=== PATIENT | female | born 1990 | race African-American/Black ===

== ENCOUNTER 2017-05-31 11:21 | Observation (INO) | payer MEDICAID ==
[~2017-05-31] VITALS: Ht 177.8 cm; Wt 148.8 kg
[2017-05-31] MEDS ORDERED: PNV1TABL76 PO (12:10)
[2017-05-31] MEDS ORDERED: ASPI-1159 PO (12:12)
[2017-05-31] MEDS ORDERED: OCD PO (12:13)
[2017-05-31] MEDS ORDERED: IRON1CAP21 PO (12:14)
[2017-05-31 12:47] LABS: CLARITY URINE CLEAR (CLEAR); COLOR URINE YELLOW (YELLOW); GLUCOSE URINE NEGATIVE (NEGATIVE); KETONES URINE NEGATIVE (NEGATIVE); LEUKOCYTE ESTERASE URINE 2+ (NEGATIVE); NITRITE URINE NEGATIVE (NEGATIVE); OCCULT BLOOD URINE NEGATIVE (NEGATIVE); PH URINE 7.5 (4.5-8.0); PROTEIN URINE NEGATIVE (NEGATIVE); SPECIFIC GRAVITY URINE 1.006 (1.005-1.030); UROBILINOGEN URINE 0.2 E.U./dL (0.2-1.0)
== END 2017-05-31 13:45 | disposition home or self-care (01) ==
LOC: L&D 11:21
PROVIDERS: ADMIT Obstetrics & Gynecology; ATTEND Obstetrics & Gynecology
DX: O26.893 Other specified pregnancy related conditions, third trimester (principal); R10.2 Pelvic and perineal pain; O21.9 Vomiting of pregnancy, unspecified; Z3A.33 33 weeks gestation of pregnancy
CPT/HCPCS: 81001; 99281; G0378

== ENCOUNTER 2017-06-19 15:24 | Observation (INO) | payer MEDICAID ==
[~2017-06-19] VITALS: Ht 177.8 cm; Wt 147.4 kg
[~2017-06-19 15:24] MED LIST: ASPI-1159 PO; IRON1CAP21 PO; OCD PO; PNV1TABL76 PO
[2017-06-19 16:25] LABS: CLARITY URINE CLOUDY (CLEAR); COLOR URINE YELLOW (YELLOW); GLUCOSE URINE NEGATIVE (NEGATIVE); KETONES URINE NEGATIVE (NEGATIVE); LEUKOCYTE ESTERASE URINE 3+ (NEGATIVE); NITRITE URINE NEGATIVE (NEGATIVE); OCCULT BLOOD URINE NEGATIVE (NEGATIVE); PH URINE 6.5 (4.5-8.0); PROTEIN URINE NEGATIVE (NEGATIVE); SPECIFIC GRAVITY URINE 1.016 (1.005-1.030)
[2017-06-19 16:29] LABS: BASOPHILS % 0.2 % (0.0-2.0); EOSINOPHILS % 2.6 % (0.0-5.0); HEMATOCRIT. 30.4 % (36.0-48.0); HEMOGLOBIN. 9.7 g/dL (12.0-16.0); LYMPHOCYTES % 18.6 % (20.0-50.0); MEAN CORPUSCULAR HEMOGLOBIN 23.5 pg (28.0-32.0); MEAN CORPUSCULAR VOLUME 73.8 fL (81.0-99.0); MEAN PLATELET VOLUME 9.2 fl (7.4-10.4); MONOCYTES % 8.7 % (2.0-8.0); NEUTROPHILS % 69.9 % (40.0-76.0); PLATELET 226 x1000/uL (130-400); RED BLOOD CELL COUNT 4.12 mill/uL (4.2-5.4); RED CELL DISTRIBUTION WIDTH 15.1 % (11.6-14.6)
[2017-06-19 16:38] LABS: CARBON DIOXIDE 22 mEq/L (21-32); CHLORIDE 105 mEq/L (98-107)
[2017-06-19 16:41] LABS: *AMPHETAMINES SCREEN URINE NEGATIVE (NEGATIVE); *BARBITURATES SCREEN URINE NEGATIVE (NEGATIVE); *BENZODIAZEPINES SCREEN URINE NEGATIVE (NEGATIVE); *COCAINE SCREEN URINE NEGATIVE (NEGATIVE); CANNABINOID URINE SCREEN NEGATIVE (NEGATIVE); METHADONE URINE SCREEN NEGATIVE (NEGATIVE); OPIATES URINE SCREEN NEGATIVE (NEGATIVE); PHENCYCLIDINE URINE SCREEN NEGATIVE (NEGATIVE)
[2017-06-19 16:41] LABS: D-DIMER 1.4 mg/L FEU (<0.50); PARTIAL THROMBOPLASTIN TIME 27.8 sec (23.4-31.0); PROTHROMBIN TIME 10.9 sec (9.4-11.6)
[2017-06-19] MEDS ORDERED: POTASSIUM CHLORIDE 20MEQ TABLET SR PO NR (18:15)
== END 2017-06-19 18:30 | disposition home or self-care (01) ==
LOC: L&D 15:24
PROVIDERS: ADMIT Obstetrics & Gynecology; ATTEND Obstetrics & Gynecology
DX: O26.893 Other specified pregnancy related conditions, third trimester (principal); R03.0 Elevated blood-pressure reading, without diagnosis of hypertension; Z3A.36 36 weeks gestation of pregnancy
CPT/HCPCS: 36415; 80053; 80305; 81001; 84550; 85025; 85379; 85384; 85610; 85730; 99281; G0378

== ENCOUNTER 2017-07-07 14:23 | Observation (INO) | payer MEDICAID ==
[~2017-07-07] VITALS: Ht 177.8 cm; Wt 154.7 kg
[2017-07-07 16:30] LABS: BASOPHILS % 0.2 % (0.0-2.0); CLARITY URINE CLEAR (CLEAR); COLOR URINE DARK YELLOW (YELLOW); EOSINOPHILS % 2.4 % (0.0-5.0); GLUCOSE URINE NEGATIVE (NEGATIVE); HEMATOCRIT. 29.4 % (36.0-48.0); HEMOGLOBIN. 9.4 g/dL (12.0-16.0); KETONES URINE NEGATIVE (NEGATIVE); LEUKOCYTE ESTERASE URINE 2+ (NEGATIVE); MEAN CORPUSCULAR HEMOGLOBIN 23.5 pg (28.0-32.0); MEAN CORPUSCULAR VOLUME 73.5 fL (81.0-99.0); MEAN PLATELET VOLUME 8.8 fl (7.4-10.4); MONOCYTES % 10.2 % (2.0-8.0); NEUTROPHILS % 70.2 % (40.0-76.0); NITRITE URINE NEGATIVE (NEGATIVE); OCCULT BLOOD URINE NEGATIVE (NEGATIVE); PLATELET 226 x1000/uL (130-400); PROTEIN URINE NEGATIVE (NEGATIVE); RED CELL DISTRIBUTION WIDTH 15.6 % (11.6-14.6); SPECIFIC GRAVITY URINE 1.023 (1.005-1.030)
[2017-07-07 16:36] LABS: CARBON DIOXIDE 25 mEq/L (21-32); CHLORIDE 105 mEq/L (98-107)
[2017-07-07 16:39] LABS: D-DIMER 1.79 mg/L FEU (<0.50); INR 1.1; PARTIAL THROMBOPLASTIN TIME 27.5 sec (23.4-31.0); PROTHROMBIN TIME 11.3 sec (9.4-11.6)
== END 2017-07-07 17:50 | disposition home or self-care (01) ==
LOC: EDSTATUS 14:36 → L&D 14:46
PROVIDERS: ADMIT Obstetrics & Gynecology; ATTEND Obstetrics & Gynecology
DX: O13.3 Gestational [pregnancy-induced] hypertension without significant proteinuria, third trimester (principal); O99.013 Anemia complicating pregnancy, third trimester; D57.40 Sickle-cell thalassemia without crisis; O99.513 Diseases of the respiratory system complicating pregnancy, third trimester; J45.909 Unspecified asthma, uncomplicated; O26.03 Excessive weight gain in pregnancy, third trimester; R89.6 Abnormal cytological findings in specimens from other organs, systems and tissues; Z3A.38 38 weeks gestation of pregnancy
CPT/HCPCS: 36415; 76815; 76818; 80053; 81001; 84550; 85025; 85379; 85384; 85610; 85730; 87086; 99281; G0378

== ENCOUNTER 2017-07-13 06:28 | Inpatient (IN) | payer MEDICAID ==
[~2017-07-13] VITALS: Ht 177.8 cm; Wt 154.2 kg
[2017-07-13] MEDS ORDERED: DEXT 5%/LR + PITOCIN 20UNITS/L 1,000 ML IV SCH (06:41)
[2017-07-13] MEDS ORDERED: CARBOPROST TROMETHAMINE 250 MCG/ML AMPUL IM PRN (06:45)
[2017-07-13] MEDS ORDERED: NALOXONE HCL 0.4 MG/ML 1ML VIAL IM PRN (06:45)
[2017-07-13] MEDS ORDERED: METHYLERGONOVINE MALEATE 0.2 MG/ML IM PRN ×2 (06:45→13:45)
[2017-07-13] MEDS: LACTATED RINGERS 1,000 ML IV SCH ×2 (07:30→08:11)
[2017-07-13 07:38] LABS: CLARITY URINE CLEAR (CLEAR); COLOR URINE YELLOW (YELLOW); KETONES URINE NEGATIVE (NEGATIVE); LEUKOCYTE ESTERASE URINE 3+ (NEGATIVE); NITRITE URINE NEGATIVE (NEGATIVE); OCCULT BLOOD URINE NEGATIVE (NEGATIVE); PH URINE 6.5 (4.5-8.0); PROTEIN URINE NEGATIVE (NEGATIVE); SPECIFIC GRAVITY URINE 1.011 (1.005-1.030)
[2017-07-13 07:47] LABS: *AMPHETAMINES SCREEN URINE NEGATIVE (NEGATIVE); *BARBITURATES SCREEN URINE NEGATIVE (NEGATIVE); *BENZODIAZEPINES SCREEN URINE NEGATIVE (NEGATIVE); *COCAINE SCREEN URINE NEGATIVE (NEGATIVE); CANNABINOID URINE SCREEN NEGATIVE (NEGATIVE); METHADONE URINE SCREEN NEGATIVE (NEGATIVE); OPIATES URINE SCREEN NEGATIVE (NEGATIVE); PARTIAL THROMBOPLASTIN TIME 27.9 sec (23.4-31.0); PHENCYCLIDINE URINE SCREEN NEGATIVE (NEGATIVE); PROTHROMBIN TIME 10.8 sec (9.4-11.6)
[2017-07-13] MEDS ORDERED: MORPHINE SULFATE/PF 1MG/ML 10ML AMP ONE (07:50)
[2017-07-13] MEDS ORDERED: MIDAZOLAM HCL 2 MG/2 ML VIAL ONE (07:50)
[2017-07-13] MEDS ORDERED: PHENYLEPHRINE HCL 10 MG/ML 1ML (IV VIAL) IV ONE (07:54)
[2017-07-13] MEDS ORDERED: CEFAZOLIN SODIUM 1000MG/VIAL ONE (07:54)
[2017-07-13] MEDS ORDERED: EPHEDRINE SULFATE 50MG/ML VIAL ONE (07:54)
[2017-07-13] MEDS ORDERED: DEXAMETHASONE 4MG/ML 1ML VIAL ONE (07:54)
[2017-07-13] MEDS ORDERED: OXYTOCIN 10 UNITS/ML 1ML ONE (07:54)
[2017-07-13] MEDS ORDERED: SODIUM CHLORIDE 0.9% 10ML VIAL ONE (07:54)
[2017-07-13] MEDS ORDERED: ONDANSETRON HCL 4MG/2ML VIAL ONE (07:54)
[2017-07-13 08:23] LABS: BASOPHILS % 0.4 % (0.0-2.0); EOSINOPHILS % 2.5 % (0.0-5.0); HEMATOCRIT. 28.7 % (36.0-48.0); HEMOGLOBIN. 9.3 g/dL (12.0-16.0); LYMPHOCYTES % 19.8 % (20.0-50.0); MEAN CORPUSCULAR HEMOGLOBIN 24.2 pg (28.0-32.0); MEAN CORPUSCULAR VOLUME 74.8 fL (81.0-99.0); MEAN PLATELET VOLUME 9.3 fl (7.4-10.4); MONOCYTES % 8.2 % (2.0-8.0); NEUTROPHILS % 69.1 % (40.0-76.0); PLATELET 226 x1000/uL (130-400); RED BLOOD CELL COUNT 3.84 mill/uL (4.2-5.4); RED CELL DISTRIBUTION WIDTH 15.6 % (11.6-14.6)
[2017-07-13 11:02] LABS: RUBELLA IGG 9.8 IU/mL (4.99-10)
[2017-07-13 11:03] LABS: HEPATITIS B SURFACE ANTIGEN NEGATIVE
[2017-07-13] MEDS ORDERED: ACETAMINOPHEN 650MG SUPP PR PRN (11:15)
[2017-07-13] MEDS ORDERED: MORPHINE SULFATE 4 MG/ML CPJ (NOT FOR IM USE) IV PRN (11:15)
[2017-07-13] MEDS ORDERED: ONDANSETRON HCL 4MG/2ML VIAL IV PRN ×2 (11:15→11:30)
[2017-07-13] MEDS ORDERED: BUTORPHANOL TARTRATE 2 MG/ML VIAL IV PRN (11:30)
[2017-07-13] MEDS ORDERED: DIPHENHYDRAMINE 50MG/ML VIAL IV PRN (11:30)
[2017-07-13] MEDS ORDERED: NALOXONE HCL 0.4 MG/ML 1ML VIAL IV PRN (11:30)
[2017-07-13 14:05] VITALS: BP 119/69
[2017-07-13 14:36] VITALS: BP 104/68
[2017-07-13] MEDS: KETOROLAC 30MG/ML VIAL IV SCH ×2 (15:16→21:21)
[2017-07-13 16:59] VITALS: BP 134/80
[2017-07-13] MEDS: CEFAZOLIN 1000MG PREMIX 50 ML IV SCH (17:27)
[2017-07-13 20:00] VITALS: BP 113/49
[2017-07-14 00:15] VITALS: BP 103/59
[2017-07-14] MEDS: CEFAZOLIN 1000MG PREMIX 50 ML IV SCH ×2 (01:49→09:06)
[2017-07-14] MEDS: KETOROLAC 30MG/ML VIAL IV SCH (02:42)
[2017-07-14 04:00] VITALS: BP 105/52
[2017-07-14 05:59] LABS: BASOPHILS % 0.2 % (0.0-2.0); EOSINOPHILS % 0.7 % (0.0-5.0); HEMATOCRIT. 24.3 % (36.0-48.0); HEMOGLOBIN. 7.8 g/dL (12.0-16.0); LYMPHOCYTES % 19.6 % (20.0-50.0); MEAN CORPUSCULAR HEMOGLOBIN 23.6 pg (28.0-32.0); MEAN CORPUSCULAR VOLUME 73.9 fL (81.0-99.0); MEAN PLATELET VOLUME 9.5 fl (7.4-10.4); MONOCYTES % 8.9 % (2.0-8.0); NEUTROPHILS % 70.6 % (40.0-76.0); PLATELET 228 x1000/uL (130-400); RED BLOOD CELL COUNT 3.29 mill/uL (4.2-5.4)
[2017-07-14] MEDS ORDERED: METOCLOPRAMIDE HCL 10MG TABLET PO SCH (08:00)
[2017-07-14 09:00] VITALS: BP 104/52
[2017-07-14] MEDS ORDERED: KETOROLAC 30MG/ML VIAL IV SCH (09:04)
[2017-07-14 16:00] VITALS: BP 102/64
[2017-07-14 20:00] VITALS: BP 134/75
[2017-07-14] MEDS: IBUPROFEN 600MG TABLET PO PRN (21:48)
[2017-07-15] MEDS: IBUPROFEN 600MG TABLET PO PRN ×3 (07:05→18:27)
[2017-07-15 07:33] VITALS: BP 127/73
[2017-07-15 11:48] VITALS: BP 128/75
[2017-07-15 16:59] VITALS: BP 131/71
[2017-07-15 19:50] VITALS: BP 130/86
[2017-07-16] MEDS: GUAIFENESIN 200MG TABLET PO PRN ×2 (00:07→06:03)
[2017-07-16 05:30] VITALS: BP 133/71
[2017-07-16] MEDS: IBUPROFEN 600MG TABLET PO PRN ×2 (06:03→08:38)
[2017-07-16 08:00] VITALS: BP 143/77
[2017-07-16 08:38] VITALS: BP 133/71
[2017-07-16] MEDS ORDERED: FERROUS SULFATE 325MG TABLET PO SCH (09:00)
== END 2017-07-16 13:30 | disposition home or self-care (01) | DRG 540 ==
LOC: OBSVTOIN 06:28 → L&D 06:28 → 7EST PP/OB 15:11
PROVIDERS: ADMIT Obstetrics & Gynecology; ATTEND Obstetrics & Gynecology
PROC: 0UT70ZZ Resection of Bilateral Fallopian Tubes, Open Approach (ICD-10-PCS; 2017-07-13)
PROC: 10D00Z1 Extraction of Products of Conception, Low, Open Approach (ICD-10-PCS; principal; 2017-07-13 11:29)
DX: O13.4 Gestational [pregnancy-induced] hypertension without significant proteinuria, complicating childbirth (principal); Z68.42 Body mass index [BMI] 45.0-49.9, adult; O34.211 Maternal care for low transverse scar from previous cesarean delivery; O75.89 Other specified complications of labor and delivery; O99.02 Anemia complicating childbirth; D57.3 Sickle-cell trait; O99.214 Obesity complicating childbirth; E66.9 Obesity, unspecified; D56.0 Alpha thalassemia; Z3A.39 39 weeks gestation of pregnancy; Z37.0 Single live birth; Z30.2 Encounter for sterilization
CPT/HCPCS: 36415; 80305; 81001; 85025; 85610; 85730; 86592; 86703; 86762; 86850; 86900; 86920; 87340; 88302; 88307; A4216; G0378; J0171; J0595; J0690; J1100; J1200; J1885; J2210; J2250; J2274; J2370; J2405; J2590; J7120; J8597

== ENCOUNTER 2017-07-20 09:59 | Emergency (ER) | payer MEDICAID ==
[~2017-07-20] VITALS: Ht 177.8 cm; Wt 140.0 kg
[~2017-07-20 09:59] MED LIST changes: -ASPI-1159 PO; -OCD PO
[2017-07-20 12:07] LABS: BASOPHILS % 0.4 % (0.0-2.0); EOSINOPHILS % 4.4 % (0.0-5.0); HEMATOCRIT. 25.4 % (36.0-48.0); HEMOGLOBIN. 8.1 g/dL (12.0-16.0); LYMPHOCYTES % 31.1 % (20.0-50.0); MEAN CORPUSCULAR HEMOGLOBIN 23.5 pg (28.0-32.0); MEAN CORPUSCULAR VOLUME 73.5 fL (81.0-99.0); MEAN PLATELET VOLUME 8.7 fl (7.4-10.4); NEUTROPHILS % 54.1 % (40.0-76.0); PLATELET 338 x1000/uL (130-400); RED BLOOD CELL COUNT 3.46 mill/uL (4.2-5.4); RED CELL DISTRIBUTION WIDTH 15.9 % (11.6-14.6)
[2017-07-20 12:22] LABS: CARBON DIOXIDE 26 mEq/L (21-32); CHLORIDE 108 mEq/L (98-107)
[2017-07-20] MEDS ORDERED: PIPERACILLIN/TAZ 3.375G PREMIX 50 ML IV ONE (14:45)
[2017-07-20] MEDS: VANCOMYCIN 1 G PREMIX 200 ML IV ONE ×2 (14:45→16:10)
[2017-07-20] MEDS ORDERED: SODIUM CHLORIDE 0.9% 1000ML BAG (SEPSIS BOLUS) IV ONE (14:45)
[2017-07-20 15:21] LABS: BASOPHILS % 0.2 % (0.0-2.0); EOSINOPHILS % 4.5 % (0.0-5.0); HEMATOCRIT. 26.4 % (36.0-48.0); HEMOGLOBIN. 8.5 g/dL (12.0-16.0); LYMPHOCYTES % 32.3 % (20.0-50.0); MEAN CORPUSCULAR HEMOGLOBIN 23.5 pg (28.0-32.0); MEAN CORPUSCULAR VOLUME 73.5 fL (81.0-99.0); MONOCYTES % 8.6 % (2.0-8.0); NEUTROPHILS % 54.4 % (40.0-76.0); PLATELET 346 x1000/uL (130-400); RED BLOOD CELL COUNT 3.59 mill/uL (4.2-5.4); RED CELL DISTRIBUTION WIDTH 15.8 % (11.6-14.6)
[2017-07-20 15:25] LABS: CHLORIDE 108 mEq/L (98-107)
[2017-07-20 15:28] LABS: INR 1.1; PROTHROMBIN TIME 11.6 sec (9.4-11.6)
[2017-07-20 15:30] LABS: CARBON DIOXIDE 25 mEq/L (21-32)
[2017-07-20 16:09] LABS: CLARITY URINE CLEAR (CLEAR); COLOR URINE YELLOW (YELLOW); GLUCOSE URINE NEGATIVE (NEGATIVE); KETONES URINE NEGATIVE (NEGATIVE); LEUKOCYTE ESTERASE URINE 2+ (NEGATIVE); NITRITE URINE NEGATIVE (NEGATIVE); OCCULT BLOOD URINE NEGATIVE (NEGATIVE); PH URINE 6.5 (4.5-8.0); PROTEIN URINE NEGATIVE (NEGATIVE); SPECIFIC GRAVITY URINE 1.008 (1.005-1.030); UROBILINOGEN URINE 0.2 E.U./dL (0.2-1.0)
[2017-07-20 17:30] VITALS: BP 130/83
[2017-07-20] MEDS ORDERED: BACITRACIN ZINC OINT UDPKT TOP ONE (17:30)
== END 2017-07-20 18:22 | disposition home or self-care (01) ==
LOC: ER 10:14 → EDBEDREQ 14:47 → CANRESERV 16:31 → ENRESERV 16:31 → CANBEDREQ 17:24 → ER 18:22
DX: L76.22 Postprocedural hemorrhage of skin and subcutaneous tissue following other procedure (principal); N39.0 Urinary tract infection, site not specified; Z91.013 Allergy to seafood; Z91.041 Radiographic dye allergy status; Y83.8 Other surgical procedures as the cause of abnormal reaction of the patient, or of later complication, without mention of misadventure at the time of the procedure; Y92.018 Other place in single-family (private) house as the place of occurrence of the external cause
CPT/HCPCS: 36415; 71010; 74176; 76856; 80053; 81001; 81025; 83605; 85025; 85610; 86850; 86900; 86901; 87040; 87086; 93005; 96365; 96366; 96367; 99285; J2543; J3370; J7030; Z7610